=== PATIENT | male | born 1980 | race Caucasian/White ===

== ENCOUNTER 2020-04-20 19:35 | Emergency (ER) | payer MEDICAID, OTHER ==
[~2020-04-20] VITALS: Ht 188 cm; Wt 99.8 kg
[2020-04-20 23:30] VITALS: BP 140/95
[2020-04-21] MEDS ORDERED: ONDANSETRON HCL 4 MG/2 ML VIAL IV ONE
[2020-04-21] MEDS ORDERED: HYDROmorphone HCL 2 MG/ML VL IV ONE
[2020-04-21] MEDS ORDERED: cefTRIAXone SOD 1,000 MG VL IM ONE (01:00)
== END 2020-04-21 01:46 | disposition home or self-care (01) ==
LOC: ER 19:36 → EDBD 19:36 → ER 04-21 01:46
DX: S00.01XA Abrasion of scalp, initial encounter (principal); Z88.0 Allergy status to penicillin; V86.99XA Unspecified occupant of other special all-terrain or other off-road motor vehicle injured in nontraffic accident, initial encounter; Y93.89 Activity, other specified; Y92.89 Other specified places as the place of occurrence of the external cause; Y99.8 Other external cause status
CPT/HCPCS: 70450; 71250; 72125; 73120; 74176; 96372; 96374; 96375; 99285; J0696; J1170; J2405

== ENCOUNTER 2021-04-18 15:55 | Emergency (ER) | payer MEDICAID ==
[~2021-04-18] VITALS: Ht 188 cm; Wt 90.7 kg
[2021-04-18 17:14] VITALS: BP 113/74
[2021-04-18] MEDS ORDERED: KETOROLAC TROMETH 60MG/2ML VIAL IM ONE (18:15)
[2021-04-18] MEDS ORDERED: IBUP800T27 PO (18:22)
== END 2021-04-18 18:30 | disposition home or self-care (01) ==
LOC: ER 15:57
DX: S83.92XA Sprain of unspecified site of left knee, initial encounter (principal); F17.210 Nicotine dependence, cigarettes, uncomplicated; Z90.49 Acquired absence of other specified parts of digestive tract; Z79.1 Long term (current) use of non-steroidal anti-inflammatories (NSAID); Z88.0 Allergy status to penicillin; W01.0XXA Fall on same level from slipping, tripping and stumbling without subsequent striking against object, initial encounter; Y93.89 Activity, other specified; Y92.89 Other specified places as the place of occurrence of the external cause; Y99.8 Other external cause status
CPT/HCPCS: 73562; 96372; 99283; J1885